=== PATIENT | female | born 2000 | race Caucasian/White ===

== ENCOUNTER 2018-12-30 12:07 | Emergency (ER) | payer SELFPAY ==
[2018-12-30] MEDS ORDERED: PROMETHAZINE HCL INJ 12.5 MG in SODIUM CHLORIDE 0.9% 50ML 50 ML IVPB ONE (12:48)
[2018-12-30] MEDS ORDERED: SODIUM CHLORIDE 0.9% 1000ML 1,000 ML IVS ONE ×2 (12:48→15:23)
--- NOTE | 2018-12-30 12:55 | ED.PDOC ---
History of Present Illness - General Chief Complaint: GI Problem Time Seen by Provider: 12/30/18 12:41 Source: patient Exam Limitations: no limitations - History of Present Illness Initial Comments: N/V/D. ONSET THIS AM. EMESIS > 5. DIARRHEA, WATERY, NO BLOOD Severity: moderate Improving Factors: nothing Worsening Factors: nothing Allergies/Adverse Reactions: Allergies NO KNOWN ALLERGY Allergy (Verified 12/30/18 12:25) Home Medications: Ambulatory Orders Ciprofloxacin [Cipro] 500 mg PO BID #20 ml 12/30/18 Ondansetron Tab [Zofran Tab] 4 mg PO TID PRN #10 tab 12/30/18 Review of Systems - Review of Systems Constitutional: Denies: chills, fever EENTM: States: no symptoms reported Respiratory: States: no symptoms reported Cardiology: Denies: chest pain, palpitations, syncope Gastrointestinal/Abdominal: States: no symptoms reported, abdominal pain, diarrhea, nausea, vomiting Genitourinary: States: no symptoms reported Musculoskeletal: States: back pain - FEELS LIKE IT IS MUSCULAR FROM VOMITING. Skin: States: no symptoms reported Neurological: States: no symptoms reported Endocrine: States: no symptoms reported Hematologic/Lymphatic: States: no symptoms reported Past Medical History (General) - Patient Medical History Hx Diabetes: No - Female History Hx Last Menstrual Period: 12/03/18 Family Medical History - Family History Father Living Status: Still Living Hx Family Asthma: No Hx Family Congestive Heart Failure: No Hx Family Hypertension: No Hx Family Stroke: No Hx Cardiac Disease: No Hx Family Diabetes: Yes Hx Family Cancer: No Physical Exam - Physical Exam General Appearance: Alert, No apparent distress Eye Exam: bilateral normal Ears, Nose, Throat: hearing grossly normal, normal ENT inspection - MOIST MM Neck: non-tender, full range of motion, supple Respiratory: lungs clear, normal breath sounds Cardiovascular/Chest: no murmur, tachycardia Gastrointestinal/Abdominal: normal bowel sounds, soft, no organomegaly, other - MILD DIFFUSE ABD TTP Back Exam: normal inspection, no CVA tenderness Extremity: normal range of motion, non-tender, normal inspection Neurologic: alert, normal mood/affect Skin Exam: normal color, warm/dry Lymphatic: no adenopathy Progress - Progress Progress: 12/30/18 15:26 STILL SLIGHTLY TACHYCARDIC BUT FEELING BETTER. WILL BOLUS ONE MORE L OF FLUID THEN D/C NO FURTHER VOMITING, JUSTINA PO FLUIDS. - EKG/XRAY/CT CT Ordered: No Departure - Departure Clinical Impression: Colitis, Dehydration Time of Disposition: 15:31 Disposition: Discharge to Home or Self Care Condition: Good Departure Forms: ED Discharge - Pt. Copy, Patient Portal Self Enrollment Instructions: Viral Gastroenteritis, Adult (DC), Dehydration, Adult (DC) Prescriptions: Ciprofloxacin [Cipro] 500 mg PO BID #20 ml Ondansetron Tab [Zofran Tab] 4 mg PO TID PRN #10 tab PRN Reason: Nausea/Vomiting Home Medications: Ambulatory Orders Ciprofloxacin [Cipro] 500 mg PO BID #20 ml 12/30/18 Ondansetron Tab [Zofran Tab] 4 mg PO TID PRN #10 tab 12/30/18
[2018-12-30] MEDS ORDERED: SODIUM CHLORIDE 0.9% 50ML 50 ML ONE (13:09)
[2018-12-30] MEDS ORDERED: PROMETHAZINE HCL INJ 25 MG/ML VIAL ONE (13:09)
[2018-12-30] MEDS ORDERED: ONDANSETRON 4 MG TAB PO ONE (16:10)
[2018-12-30 16:41] VITALS: BP 118/72; TEMP 98.6; O2SAT 100
== END 2018-12-30 16:40 | disposition home or self-care (01) ==
LOC: ER 12:07
DX: K52.9 Noninfective gastroenteritis and colitis, unspecified (principal); E86.0 Dehydration; R00.0 Tachycardia, unspecified
CPT/HCPCS: 80048; 81001; 83630; 85025; 87045; 87046; 87324; 87449; A4216; J2550; J7030